=== PATIENT | male | born 2000 | race Caucasian/White ===

== ENCOUNTER 2021-05-21 11:45 | Day surgery (SDC) | payer BC ==
[~2021-05-21] VITALS: Ht 185.4 cm; Wt 89.6 kg
--- NOTE | 2021-05-21 12:05 | NUR ---
Patient ambulated to bay #7 without difficulty, using a steady gait. 20 year old male states being physically active and denies medications other than his asthma inhaler to which he cannot remember the name for. HX reviewed at this time with patient. Patient voided prior to changing into a clean gown. Warm blanket provided. IV started in R hand on first attempt. Consent reviewed and signed. First and last name + verifed with patient, who verbalized understanding to procedure. Parents were escroted to the room. SEE PHYSICAL ASSESSMENT. Side rails x2. Call aguila is at bedside.
[2021-05-21] MEDS ORDERED: ASTHMA INHALER (12:18)
[2021-05-21] MEDS ORDERED: ZYRTEC10MGSGL PO (12:51)
[2021-05-21 13:40] VITALS: BP 148/70; PULSE 80; TEMP 98.3
[2021-05-21 15:15] VITALS: BP 137/75; PULSE 81; TEMP 97.4
--- NOTE | 2021-05-21 15:15 | NUR ---
Patient arrived on cart from PACU. Escorted by ROSANNA Pereira. Patient is alert and oriented x3. Described pain as a 3/10. Vitals and report obtained at this time. Parents were escorted back to bay #7. side rails x2. Call aguila is at bedside.
[2021-05-21 15:30] VITALS: BP 142/68; PULSE 62
--- NOTE | 2021-05-21 15:30 | NUR ---
Patient is resting in bed with his parents in the room. Vitals obtained. Will continue to monior.
--- NOTE | 2021-05-21 15:35 | NUR ---
Patient requested applejuice to drink. DR taylor was called to verify PRN medication and where the script was sent to: Narco 5 mg to [facility].
[2021-05-21 15:45] VITALS: BP 144/68; PULSE 59
--- NOTE | 2021-05-21 15:45 | NUR ---
Patient is tolerating his juice and requested more with buttered toast. Patient is tolerating his toast well at this time. Vitals obtained. Will continue to monitor. Patient states pain in increasing and has a long drive home. RN to provide pain medication.
--- NOTE | 2021-05-21 15:50 | NUR ---
Pain medication was administered. However the barcode had a small piece broken off the side and RN was unable to scan after numerous attempts. Medication was verfied in the system before administering.
--- NOTE | 2021-05-21 15:55 | NUR ---
Patient was assisted ambulating to the bathroom and was able to successfully void. IV discontinued after he got back to the room. Pressure bandage applied. Catheter tip intact.
--- NOTE | 2021-05-21 16:00 | NUR ---
Discharge insturctions and educational material reviewed with patient and his parents. Patient and both parents stated no further questions or concerns.
--- NOTE | 2021-05-21 16:23 | NUR ---
Patient and family were escorted out to main patient entrence via wheelchair. Mother has discharge instructions and patient has his personal belongings. Patient was transferred into the care of his parents at this time. His mom is present to drive.
== END 2021-05-21 16:15 | disposition home or self-care (01) ==
LOC: SDCO 11:45
DX: I86.1 Scrotal varices (principal); J45.909 Unspecified asthma, uncomplicated; Z79.899 Other long term (current) drug therapy
CPT/HCPCS: J0690; J1100; J1885; J2405; J2704; J3010; J7120